=== PATIENT | male | born 1990 | race Native Hawaiian/Other Pacific Islander ===

== ENCOUNTER 2016-12-14 22:49 | Emergency (ER) | payer BC ==
[~2016-12-14] VITALS: Ht 172.7 cm; Wt 72.5 kg
[2016-12-14 22:50] VITALS: BP 143/89; PULSE 81; RESP 16; TEMP 98.2; O2SAT 100
[2016-12-14] MEDS ORDERED: DEXTROSE 50% IN WATER 50 ML VIAL(D50) ONE (23:10)
--- NOTE | 2016-12-14 23:16 | PD ---
HPI Chief Complaint: Diabetic Time Seen by Provider: 22:54 Travel History International Travel<30 days: No Contact w/Intl Traveler<30days: No Traveled to known affect area: No History of Present Illness HPI The patient is a 26-year-old male, insulin diabetic who is on an insulin pump who has not been eating as much food as he normally eats today. He is not sure why, he has not been depressed, he denies any abdominal pain or diarrhea, his appetite has decreased. He did vomit once at 10:30 PM tonight. He spent much of the day not having his Accu-Chek with him and could not check his sugar at home because he was at his friend's. The patient comes here in the Accu-Chek is 31 at 2250. His insulin pump was turned off immediately at that time. He was given one glass of orange juice with sugar. The Accu-Chek was just repeated now at 2312 and was 38. The patient is alert and oriented 3. He denies any nausea at this time. He denies any infection or fever. It is now 2314 and the patient is given a glass of orange juice without any sugar added. He is followed by Dr. Valle, she is his recycler. He does have NovoLog R insulin at home and is now provided with an insulin sliding scale regimen that he will be on with his insulin pump off until he can see his recycler. He has not had any nonsteroidal anti-inflammatory medications or aspirin and he does not drink alcohol. PFSH Past Medical History ?: Not Social History Alcohol Use: No Tobacco Use: No Substance Use: No Allergies-Medications (Allergen,Severity, Reaction): Coded Allergies: No Known Allergies (Unverified , 12/14/16) Reported Meds & Prescriptions Reported Meds & Active Scripts Active Review of Systems Except as stated in HPI: all other systems reviewed are Neg Physical Exam Narrative GENERAL: The patient is alert, oriented 3 in no apparent distress. SKIN: Warm and dry. HEAD: Atraumatic. Normocephalic. EYES: Pupils equal and round. No scleral icterus. No injection or drainage. ENT: No nasal bleeding or discharge. Mucous membranes pink and moist. NECK: Trachea midline. No JVD. CARDIOVASCULAR: Regular rate and rhythm. No murmur appreciated. RESPIRATORY: No accessory muscle use. Clear to auscultation. Breath sounds equal bilaterally. GASTROINTESTINAL: Abdomen soft, non-tender, nondistended. Hepatic and splenic margins not palpable. No guarding or rebound is present. MUSCULOSKELETAL: No obvious deformities. No clubbing. No cyanosis. No edema. NEUROLOGICAL: Awake and alert. No obvious cranial nerve deficits. Motor grossly within normal limits. Normal speech. PSYCHIATRIC: Appropriate mood and affect; insight and judgment normal. Data Data Last Documented VS Vital Signs Date Time Temp Pulse Resp B/P Pulse Ox O2 Delivery O2 Flow Rate FiO2 12/14/16 23:06 100 Room Air 12/14/16 22:50 98.2 81 16 143/89 Orders Dextrose 50% In An (Vial) Inj (D50w (Vi (12/14/16 23:10) Ondansetron Inj (Zofran Inj) (12/14/16 23:30) Ondansetron Inj (Zofran Inj) (12/14/16 23:23) MDM Medical Decision Making Medical Screen Exam Complete: Yes Emergency Medical Condition: Yes Medical Record Reviewed: Yes Interpretation(s) At 11:2 5 PM the patient suddenly vomited. He did not have any preceding nausea , he simply vomited a fairly large amount of nonbloody vomitus. At that time he was given 4 mg of Zofran IV. Differential Diagnosis Gastritis, hypoglycemia, depression with decreased appetite, viral syndrome Narrative Course The patient has a possible gastritis and this may have led to the hypoglycemia. His decreased appetite is possibly due to the gastritis. At 22 50 the patient 's Accu-Chek was 31. At 1110 the patient's Accu-Chek was 39. At 2330 the Accu- Chek was 139 and the patient feels much better and wants to go home. He does not want any more nausea medicine but I will write him a prescription for Zofran if he needs it at home. Diagnosis Primary Impression: Hypoglycemia associated with diabetes Additional Impression: Gastritis Med/Other Pt SpecificInfo: Prescription(s) given Scripts Ondansetron (Zofran)4 Mg Tab4 Mg PO Q6HR PRN (NAUSEA OR VOMITING) #28 TAB Ref 0 Prov:Matty Quiñones MD 12/15/16 Disposition: DISCHARGE HOME Condition: Stable Matty Quiñones MD Dec 14, 2016 23:16
[2016-12-14] MEDS ORDERED: ONDANSETRON HCL 4 MG/2 ML VIAL ONE (23:23)
[2016-12-14] MEDS ORDERED: ONDANSETRON HCL 4 MG/2 ML VIAL IV ONE (23:30)
[2016-12-14 23:45] VITALS: BP 155/88; PULSE 80; RESP 18; O2SAT 100
[2016-12-15] MEDS ORDERED: ZOFR4TAB PO (00:09)
[2016-12-15 00:31] VITALS: BP 117/71
== END 2016-12-15 00:31 | disposition home or self-care (01) ==
LOC: PHED 22:49
DX: E11.649 Type 2 diabetes mellitus with hypoglycemia without coma (principal); K29.70 Gastritis, unspecified, without bleeding; Z96.41 Presence of insulin pump (external) (internal)
CPT/HCPCS: 96374; 99284; J2405